=== PATIENT | female | born 1970 | race Caucasian/White ===

== ENCOUNTER 2016-09-06 06:27 | Day surgery (SDC) | payer BC ==
--- NOTE | ~2016-09-06 | EGD ---
EGD REPORT [facility] [address] [address] NAME: CONSUELO LEE : [birth year] STATUS : REG [facility]#: [id number] AGE: 45 ADM/REG DATE : 09/06/16 MR#: [id number] REPORT SERV DATE: 09/06/16 DICTATED BY: JAMIE AWAD DATE: 09/06/16 REPORT STATUS : Draft TRANSCRIBED BY: [facility] DATE: 09/06/16 [facility] Patient Name: Consuelo Lee Date of : 1970 Attending MD: KAITY AWAD MD Procedure Date No Time: 09/06/2016 Procedure: Colonoscopy Indications: Screening in patient at increased risk: Colorectal cancer in brother before age 60, Last colonoscopy: July 2010 Referring MD: MARY CRISOSTOMO Medicines: See the Anesthesia note for documentation of the administered medications Complications: No immediate complications. Estimated blood loss: None. Procedure: Pre-Anesthesia Assessment: - ASA Grade Assessment: II - A patient with mild systemic disease. - Prior to the procedure, a History and Physical was performed, and patient medications and allergies were reviewed. The patient's tolerance of previous anesthesia was also reviewed. The risks and benefits of the procedure and the sedation options and risks were discussed with the patient. All questions were answered, and informed consent was obtained. Prior Anticoagulants: The patient has taken no previous anticoagulant or antiplatelet agents. After reviewing the risks and benefits, the patient was deemed in satisfactory condition to undergo the procedure. After I obtained informed consent, the scope was passed under direct vision. Throughout the procedure, the patient's blood pressure, pulse, and oxygen saturations were monitored continuously. The PCF [id number] was introduced through the anus and advanced to the terminal ileum. The ileocecal valve, appendiceal orifice, terminal ileum and rectum were photographed. The entire colon was examined. The colonoscopy was performed without difficulty. The patient tolerated the procedure well. The quality of the bowel preparation was adequate. Findings: The perianal and digital rectal examinations were normal. The terminal ileum appeared normal. A sessile polyp was found at the hepatic flexure. The polyp was 4 mm in size. The polyp was removed with a cold snare. Resection and retrieval were complete. EGD REPORT [address] [address] NAME: CONSUELO LEE : [birth year] STATUS : REG [facility]#: [id number] AGE: 45 ADM/REG DATE : 09/06/16 MR#: [id number] REPORT SERV DATE: 09/06/16 DICTATED BY: JAMIE AWAD DATE: 09/06/16 REPORT STATUS : Draft TRANSCRIBED BY: [employer] DATE: 09/06/16 Non-bleeding external and internal hemorrhoids were found, and they were Grade II (internal hemorrhoids that prolapse but reduce spontaneously). Impression: - The examined portion of the ileum was normal. - One 4 mm polyp at the hepatic flexure. Resected and retrieved. - Non-bleeding external and internal hemorrhoids. Recommendation: - Patient has a contact number available for emergencies. The signs and symptoms of potential delayed complications were discussed with the patient. Return to normal activities tomorrow. Written discharge instructions were provided to the patient. - Regular diet. - Discharge patient to home. - Await pathology results. - Repeat colonoscopy in 5 years for surveillance. Procedure Code(s): --- Professional --- 12744, Colonoscopy, flexible, proximal to splenic flexure; with removal of tumor(s), polyp(s), or other lesion(s) by snare technique Diagnosis Code(s): --- Professional --- K64.1, Second degree hemorrhoids D12.3, Benign neoplasm of transverse colon Z12.11, Encounter for screening for malignant neoplasm of colon Z80.0, Family history of malignant neoplasm of digestive organs CPT copyright 2013 [employer]. All rights reserved. The codes documented in this report are preliminary and upon outpatient coder review may be revised to meet current compliance requirements. KAITY AWAD MD 09/06/2016 9:15 AM This report has been signed electronically. Number of Addenda: 0 Note Initiated On: 09/06/2016 8:41 AM Scope Withdrawal Time 0 hours 9 minutes 41 seconds [id number] [id number]
[~2016-09-06 06:27] MED LIST: MOBIC15 MG PO; PROAIR HFA INH; SAS500 PO; TOPXL25 PO; ZANTAC150 MG PO
== END 2016-09-06 23:59 | disposition home or self-care (01) ==
LOC: DMU 06:27
PROVIDERS: Internal Medicine Gastroenterology
PROC: 0DBK8ZZ Excision of Ascending Colon, Via Natural or Artificial Opening Endoscopic (ICD-10-PCS; principal; 2016-09-06 08:00)
DX: Z12.11 Encounter for screening for malignant neoplasm of colon (principal); D12.2 Benign neoplasm of ascending colon; K64.1 Second degree hemorrhoids; Z80.0 Family history of malignant neoplasm of digestive organs; M19.90 Unspecified osteoarthritis, unspecified site; K21.9 Gastro-esophageal reflux disease without esophagitis
CPT/HCPCS: 84703; 88305; J1200; J1720